=== PATIENT | male | born 1955 | race Caucasian/White ===

== ENCOUNTER 2016-07-31 05:04 | Day surgery (SDC) | payer BC ==
--- NOTE | ~2016-07-31 | OP ---
Record Of Operation [facility] [address] [place]. [address] NAME: ROSALES PEDRO : 53 STATUS : [place] [facility] [place] PAT#: [id number] AGE: 60 ADM/REG DATE : 07/31/16 MR#: [id number] REPORT SERV DATE: 07/31/16 DICTATED BY: ROSA ISELA MALIK DATE: 07/31/16 REPORT STATUS : Draft TRANSCRIBED BY: MODL DATE: 07/31/16 DATE OF PROCEDURE: 07/31/2016 PREOPERATIVE DIAGNOSIS: A 7 mm right renal calculus. POSTOPERATIVE DIAGNOSIS: A 7 mm right renal calculus. PROCEDURE: Right ESWL. SURGEON: Rosa Isela Malik M.D. CAMPAIGN MARKETING MANAGER: Monalisa Cortés. ANESTHESIA: MAC. HISTORY: Mr. Pedro is a 60-year-old white gentleman with a symptomatic 7 mm right renal calculus. We discussed treatment options and he requested right ESWL. Risks specific to this procedure include, but not limited to bleeding, infection, incomplete stone fragmentation, Steinstrasse, hematoma, injury to neighboring organs, need for further urologic procedures, anesthesia complications, and so forth. I answered all of his questions I believe to his satisfaction. Subsequently, he requested the procedure and provided informed written consent. PROCEDURE IN DETAIL: On 07/31/2016, the patient was brought to the lithotripsy suite. He was placed supine on the Dornier Compact Delta II lithotripter. Biplanar fluoroscopy was used to localize the right renal calculus. A time-out was called. The proper patient and procedure were confirmed. Levaquin was administered as a perioperative antibiotic. At this time, the Anesthesia team established monitored anesthesia care. Subsequently, we delivered a total of 2500 shocks at a maximum power level of 3 in rate of 90 shocks per minute to the stone. Fluoroscopy time was 3 minutes and 55 seconds. The patient tolerated the procedure well without any immediate complications, and was transferred to the recovery area in stable condition. RAC/MODL Rosa Isela Malik M.D. / [id number] CC: Jose Brownerold Selzer, M.D.
[~2016-07-31 05:04] MED LIST: ACTOPLUS M15 MG/500 PO; AMARYL1 MG PO; GLUCOPHAGE1000 MG PO; GLUCPH PO; INSULIN SC; VITAMIN B12; ZOCOR20 PO; [UNRECOGNIZED DRUG - CODE] SC
[2016-07-31 06:08] LABS: ASCORBIC ACID (UR NOT ORDER) NEG (NEG); BILIRUBIN, URINE NEGATIVE (NEG); KETONE, URINE NEGATIVE (NEG); LEUKOCYTE ESTERASE(NOT OR NEG (NEG); WBC (NOT ORDERED) (RFLEX) 1 (0-5)
[2016-07-31 06:20] LABS: HEMATOCRIT 43.3 % (40.0-51.0); HEMOGLOBIN 14.8 g/dL (13.6-17.8)
[2016-07-31 06:24] LABS: CALCIUM, SERUM 9.9 MG/DL (8.5-10.4); CHLORIDE, SERUM 108 MMOL/L (96-112); CREATININE 0.63 MG/DL (0.70-1.30); GFR AFRICAN AMERICAN 123 ML/MIN (>=60); GFR NON AFRICAN AMERICAN 106 ML/MIN (>=60); GLUCOSE, SERUM 189 MG/DL (60-99); SODIUM, SERUM 145 MMOL/L (135-148)
[2016-07-31 06:28] LABS: BUN (BLOOD UREA NITROGEN) 11 MG/DL (6-23); CO2 (CARBON DIOXIDE) 29 MMOL/L (24-34)
== END 2016-07-31 17:48 | disposition home or self-care (01) ==
LOC: SDC 05:04
PROVIDERS: Urology
PROC: 0TF3XZZ Fragmentation in Right Kidney Pelvis, External Approach (ICD-10-PCS; principal; 2016-07-31 07:00)
DX: N20.0 Calculus of kidney (principal); E11.9 Type 2 diabetes mellitus without complications; Z79.899 Other long term (current) drug therapy; Z98.890 Other specified postprocedural states; Z87.442 Personal history of urinary calculi; Z90.49 Acquired absence of other specified parts of digestive tract
CPT/HCPCS: 50590; 74000; 80048; 81001; 82962; 85014; 85018; 93005; J2405; J3010